=== PATIENT | male | born 1965 | race Caucasian/White ===

== ENCOUNTER 2020-09-25 12:33 | Outpatient (REF) | payer MEDICARE, MEDICAID, SELFPAY ==
[2020-09-25 14:41] LABS: Prostate Specific Antigen 0.07 ng/mL (<0.05-4.0)
== END 2020-09-25 12:34 | disposition home or self-care (01) ==
LOC: HO.10HDL 12:33
PROVIDERS: Visit Provider Urology
DX: Z12.5 Encounter for screening for malignant neoplasm of prostate (principal)
CPT/HCPCS: 36415; 84153

== ENCOUNTER → 2020-10-12 12:55 | Outpatient (BNVA) | payer MEDICARE, MEDICAID, SELFPAY | PROVIDERS: PCP Nurse Practitioner Family; Visit Provider Urology | DX: Z13.89 Encounter for screening for other disorder (principal) | CPT/HCPCS: 99212 ==

== ENCOUNTER → 2021-03-28 12:28 | Outpatient (BNVA) | payer MEDICARE, MEDICAID, SELFPAY | PROVIDERS: Visit Provider Internal Medicine | DX: I44.4 Left anterior fascicular block (principal); I45.10 Unspecified right bundle-branch block | CPT/HCPCS: 93005; 99212 ==

== ENCOUNTER 2021-07-03 11:40 | Outpatient (REF) | payer MEDICARE, MEDICAID, SELFPAY ==
[2021-07-03 14:14] LABS: Prostate Specific Antigen 0.16 ng/mL (<0.05-4.0)
== END 2021-07-03 11:41 | disposition home or self-care (01) ==
LOC: HO.10HDL 11:40
PROVIDERS: Visit Provider Urology
DX: N40.1 Benign prostatic hyperplasia with lower urinary tract symptoms (principal); N13.8 Other obstructive and reflux uropathy
CPT/HCPCS: 36415; 84153

== ENCOUNTER → 2022-08-04 13:56 | Outpatient (BNVA) | payer MEDICARE, MEDICAID, SELFPAY | PROVIDERS: PCP Nurse Practitioner Family; Referring Provider Nurse Practitioner Family; Visit Provider Internal Medicine | DX: I44.4 Left anterior fascicular block (principal); I45.10 Unspecified right bundle-branch block | CPT/HCPCS: 93005; 99212 ==

== ENCOUNTER 2023-01-30 19:55 | Emergency (ER) | payer MEDICARE, MEDICAID, SELFPAY ==
[2023-01-30 19:57] VITALS: BP 130/80; PULSE 77; O2SAT 97
[2023-01-30 20:17] VITALS: BP 130/80; PULSE 77; O2SAT 97; BMI 24.6
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
--- NOTE | 2023-01-30 20:51 | MHC.RECOVSUP ---
? Reason for consult:ETOH o? Current location:ED19? o? Identified substance use concern:? -? Support ? Intervention: o? ATS bed search started/completed/in process o? MAT started or to be started o? Community resources provided ? Plan: o? Referral to [facility] o? Bed search in progress to o? Follow up tomorrow? o? Patient awaiting crisis evaluation o? Patient to follow up with [facility] after discharge ? ? Additional information:
--- NOTE | 2023-01-30 20:53 | MHC.RECOVSUP ---
? Reason for consult:ETOH o? Current location:ED19? o? Identified substance use concern:? -? Support ? Intervention: o? Community resources provided ? Plan: ? Additional information:SARANYA met with this pt to discuss treament, but pt wasn't making any sense. Please check with this pt when he has had time to rest and sober up please and thank you!
[2023-01-30 21:07] VITALS: BP 124/60; PULSE 74; RESP 18; TEMP 37.1; O2SAT 97
[2023-01-30 22:00] VITALS: BP 122/65; PULSE 74; RESP 16; TEMP 36.5; O2SAT 98
--- NOTE | 2023-01-30 23:50 | PC.NURSE ---
sleeping comfortably, no attempts out of bed. cont to reinforce safety and monitor.
[2023-01-31 02:00] VITALS: BP 112/57; PULSE 61; RESP 16; TEMP 36.1; O2SAT 94
--- NOTE | 2023-01-31 02:42 | MHC.EDTECH ---
Patient voided on self while sleeping. Wiped and changed the linen on the bed. Assist patient with a bed bath. Placed a pad on the bed and gave the patient a warm blanket.
[2023-01-31 09:26] VITALS: BP 120/83; PULSE 66; RESP 16; TEMP 37.2; O2SAT 97
--- NOTE | 2023-01-31 09:34 | PC.NURSE ---
pt awake, refusing detox today. offered food and drink, declined. pt's only complaint is being tired and wanting to sleep.
== END 2023-01-31 09:52 | disposition home or self-care (01) ==
PROVIDERS: Emergency Provider Emergency Medicine
DX: F10.129 Alcohol abuse with intoxication, unspecified (principal); Y90.9 Presence of alcohol in blood, level not specified; R51.9 Headache, unspecified; M54.2 Cervicalgia; F17.210 Nicotine dependence, cigarettes, uncomplicated; Z71.6 Tobacco abuse counseling; Z79.899 Other long term (current) drug therapy
CPT/HCPCS: 70450; 72125; 99284; 99285

== ENCOUNTER 2023-02-03 11:29 | Outpatient (REF) | payer MEDICARE, MEDICAID, SELFPAY ==
--- NOTE | ~2023-02-03 | XR_ITS ---
EXAMINATION: XR CLAVICLE, RIGHT CLINICAL INFORMATION: Other specified disorder of bone, shoulder COMPARISON: Chest radiograph 07/09/2017 TECHNIQUE: 2 of the right clavicle. FINDINGS: There is a displaced and foreshortened fracture in the mid clavicle with 1 shaft length inferior displacement of the distal fracture. No pneumothorax is visualized. Degenerative changes in the right shoulder. XR/XR clavicle RT IMPRESSION: Displaced and foreshortened right midclavicular fracture.
== END 2023-02-03 11:30 | disposition home or self-care (01) ==
LOC: HO.HOSX 11:29
PROVIDERS: Visit Provider Physician Assistant
DX: S42.001A Fracture of unspecified part of right clavicle, initial encounter for closed fracture (principal); M89.8X1 Other specified disorders of bone, shoulder
CPT/HCPCS: 73000; 99202

== ENCOUNTER 2023-02-03 13:35 | Outpatient (AMB) | payer MEDICARE, MEDICAID, SELFPAY ==
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
[2023-02-03 14:18] VITALS: BMI 22.9
== END 2023-02-03 14:40 | disposition home or self-care (01) ==
PROVIDERS: PCP Nurse Practitioner Family; Visit Provider Physician Assistant
DX: S42.021A Displaced fracture of shaft of right clavicle, initial encounter for closed fracture (principal); V89.2XXA Person injured in unspecified motor-vehicle accident, traffic, initial encounter
CPT/HCPCS: 99204

== ENCOUNTER 2023-02-11 09:30 | Outpatient (REF) | payer MEDICARE, MEDICAID, SELFPAY ==
[2023-02-11 11:23] LABS: MANUAL DIFF FLAG NO
[2023-02-11 11:27] LABS: Appearance Urine Clear; Color Urine Yellow; Glucose Urine UA Negative (Negative); Leukocyte Esterase Urine Negative (Negative); Nitrite Urine Negative (Negative); PH 5.5 (5.0-9.0); Urine Blood Negative (Negative); Urine Ketones Negative (Negative); Urine Protein Negative (Neg-Trace)
[2023-02-11 11:45] LABS: Basophils Percent Auto 0.7 % (0-2); Eosinophils Absolute Auto 0.1 X10*3/uL (0.0-0.4); Eosinophils Percent Auto 2.8 % (0-4); Hemoglobin 15.7 g/dl (14.0-18.0); Imm Gran Abs Auto 0.01 X10*3/uL (0.00-0.03); Imm Gran Pct Auto 0.2 % (0.0-0.4); Lymphocytes Absolute Auto 1.6 X10*3/uL (1.2-4.9); Lymphocytes Percent Auto 34.6 % (20-40); Mean Corpuscular HGB Conc 33.4 g/dl (31.0-36.0); Mean Corpuscular Hemoglobin 31.7 pg (27.0-33.0); Mean Corpuscular Volume 94.9 fL (80.0-98.0); Mean Platelet Volume 9.8 fL (9.4-12.4); Monocytes Absolute Auto 0.5 X10*3/uL (0.1-1.2); Monocytes Percent Auto 9.8 % (2-11); Neutrophils Absolute Auto 2.4 x10*3/uL (2.0-8.3); Neutrophils Percent Auto 51.9 % (45-73); Platelet Count 277 X10*3/uL (160-400); Red Blood Count 4.95 X10*6/uL (4.60-5.80); Red Cell Distribution Width 13.5 % (11.0-16.0); White Blood Count 4.6 X10*3/uL (4.8-10.8)
[2023-02-11 13:07] LABS: Prostate Specific Antigen Scr 0.17 ng/mL (<0.05-4.0)
[2023-02-11 22:04] LABS: Alanine Aminotransferase 11 U/L (0-40); Albumin Level 4.4 g/dL (3.5-5.0); Alkaline Phosphatase 56 U/L (39-117); Anion Gap 15 (12-20); Aspartate Amino Transferase 14 U/L (5-37); Bilirubin Total 0.6 mg/dL (0.0-1.0); Blood Urea Nitrogen 9 mg/dL (9-16); Calcium 9.8 mg/dL (8.4-10.2); Carbon Dioxide 25 mmol/L (22-29); Chloride 103 mmol/L (96-108); Cholesterol 199 mg/dL; Estimated Glomerular Filt Rate > 60; Glucose Fasting 71 mg/dL (60-99); HDL Cholesterol 48 mg/dL; LDL Cholesterol Calculated 129 mg/dl; Potassium 3.7 mmol/L (3.3-5.1); Sodium 139 mmol/L (135-145); Total Protein 6.7 g/dL (6.5-8.0); Triglycerides 112 mg/dL
[2023-02-11 22:08] LABS: TSH reflex Free T4 2.12 uIU/mL (0.32-4.0)
== END 2023-02-11 09:31 | disposition home or self-care (01) ==
LOC: HO.HMGCLDS 09:30
PROVIDERS: PCP Nurse Practitioner Family; Visit Provider Nurse Practitioner Family
DX: Z00.00 Encounter for general adult medical examination without abnormal findings (principal); Z12.5 Encounter for screening for malignant neoplasm of prostate; C61 Malignant neoplasm of prostate; E78.5 Hyperlipidemia, unspecified; Z13.29 Encounter for screening for other suspected endocrine disorder
CPT/HCPCS: 36415; 80053; 80061; 81003; 84153; 84443; 85025

== ENCOUNTER 2023-05-06 15:00 | Outpatient (AMB) | payer MEDICARE, MEDICAID, SELFPAY ==
--- NOTE | 2023-05-06 15:11 | A.OFFVIS_ITS ---
Intake Intake Visit Reasons: re-establish care/hx prostate CA Intake Note: Patient is Present for Follow Up Re establish care for Prostate Cancer Antibiotic Allergies: None Blood Thinners: Pharmacy: [facility] Allergies No Known Allergies [No Known Allergies*] Allergy (Verified 05/06/23 15:12) HPI HPI Comments History of Present Illness Details Miguel GERONIMO is a very pleasant male. He is a patient of Dr. Bustos. He is seen for the following urologic conditions. - prostate cancer Last visit early 2020 PSA 02/15 0.17 Yearly visit Prostate cancer: Favorable intermediate 09/2017 - initial therapy external beam radiation and short-term hormones Doing well PSA remains can control. Prostate cancer was diagnosed 09/13 Dr Dietrich. Diagnosis was reached by needle biopsy, for elevated PSA, PSA at diagnosis 11.5 , size at TRUS 30 cc. The [place] grade is September 2017 - / cores - 2 cores 70% Gl 3+4, 2 cores Gl 3+3. TNM Classification of Malignant Tumours (TNM) T1c. The D'Minh (NCCN) risk category is Intermediate Risk (PSA 10-20, Gl 7, T2), Group 2 MSK nomagram - 10yr CSS 99%, 10% PFP 70%, OCD 40%, ELAYNE 60%. Initial therapy included 04/13 Primary treatment - External Beam Radiation, short term hormones - [facility] January 2018 Recent labs included 11/12 PSA < 0.05, T 960 03/14 PSA < 0.1, 07/14 < 0.1, 02/12 < 0.1, 10/14 0.1 Recent imaging included 10/11 , a bone scan, with no evidence of metastasis, , a CT (computed tomography) scan, with no evidence of metastasis. Therapeutic plan: Continue with surveillence [facility] Medical History LAFB (left anterior fascicular block) Episodic headache Urinary obstruction Heart block Dyslipidemia Hypercalcemia Adenocarcinoma of prostate Smoker Elevated PSA Carotid bruit Femoral hernia Surgical History History of lower leg fracture History of knee surgery Family History Father Alcoholic Smoker Mother HTN (hypertension) Social History Housing: Apartment Alcohol intake: current Alcohol intake frequency: 3 or more drinks per day Patient Tobacco Use Status: Current everyday Tobacco user Cigarette Packs Per Day: 0.5 Cigarettes Per Day: 10 e-Cigarette/Vaping Use: Never Used Second Hand Smoke Exposure: No service: No Current occupational status: disabled Current occupation: right hand dominant Cognitive needs: No Hearing needs: No Vision needs: No Review of Systems Const Denies chills and Denies fever(s) Card Reports no additional complaints and Denies syncope Resp Denies cough GI Denies abdominal pain and Denies heartburn Reports as per HPI and Denies change in libido Neuro Denies syncope Psych Denies change in libido Endo Denies change in libido Physical Exam Const General: cooperative, healthy appearing, comfortable and no acute distress Orientation/consciousness: patient oriented x3 HEENT Face and sinus: Yes normal facial exam Mouth: moist mucous membranes Neck Neck: Yes normal visual inspection, Yes full ROM and Yes trachea midline Chest Chest palpation & inspection: normal inspection of the chest Resp Effort & Inspection: normal respiratory effort, able to speak in complete sentences and no respiratory distress GI Inspection: Yes normal to inspection Back/Spine/Pelvis Cervical Spine: normal cervical lordosis Thoracic/Lumbar Spine: thoracic and lumbar spine normal to inspection Skin General skin exam: no rashes or lesions noted Neuro General: patient oriented x3, gait normal, tone normal and moves all extremities Extrem General: Yes normal to inspection and Yes capillary refill normal Assessment & Plan Assessment & Plan (1) Adenocarcinoma of prostate: Comment: 10/11 favorable intermediate prostate cancer initial treatment with external beam radiation hormones Code(s): C61 - Malignant neoplasm of prostate Plan One year follow-up PSA Patient Instructions: Imaging studies, laboratory and physical exam results were discussed and reviewed in detail. No major barriers to patient understanding were identified. An opportunity to ask questions regarding the treatment plan was provided. All questions were answered. The patient expressed understanding and agreement with the above treatment plan. The patient is aware they should contact our office by phone for worsening of th eir current condition or the appearance of new urologic symptoms. Compliance is encouraged with any medications and followup testing that is ordered. It is a privilege to participate in the urologic care of your patient. If you have any questions or concerns regarding treatment for the above conditions, or other urologic issues, please do not hesitate to contact me. The office telephone contact is [phone]. This note is constructed using voice recognition software. While every effort has been made to ensure accuracy performing arts technicians errors may have been included. Yours sincerely, Dr Lenny Dietrich MD, [facility] - Urology Providers of Expert, Compassionate Care for the Genitourinary System Coding Level of Care Code Est Pt Level 4 (96219) Diagnoses Adenocarcinoma of prostate C61
== END 2023-05-06 15:25 | disposition home or self-care (01) ==
PROVIDERS: PCP Nurse Practitioner Family; Visit Provider Urology
DX: C61 Malignant neoplasm of prostate (principal)
CPT/HCPCS: 99213

== ENCOUNTER → 2023-05-06 15:00 | Outpatient (BNVA) | payer MEDICARE, MEDICAID, SELFPAY | PROVIDERS: PCP Nurse Practitioner Family; Visit Provider Urology | DX: C61 Malignant neoplasm of prostate (principal) | CPT/HCPCS: 99212 ==

== ENCOUNTER 2023-07-15 13:41 | Outpatient (AMB) | payer MEDICARE, MEDICAID, SELFPAY ==
--- NOTE | 2023-07-15 13:47 | MHC.PC.OV ---
Vital Signs 07/15/23 13:48 Height 5 ft 9 in Weight 134 lb BMI 19.8 BP 118/80 Blood Pressure Location Lt brachial Position Sitting Pulse 86 Pulse Source Pulse Oximeter Pulse Oximetry (%) 99 Oxygen Delivery Method Room Air Intake Visit Reasons: 6 Month follow up Allergies No Known Allergies [No Known Allergies*] Allergy (Verified 07/15/23 13:48) Tobacco use date assessed: 07/15/23 Dental Screening Dental Screen Date: 07/15/23 Did you have a dental visit in the last 12 months?: Yes Did you have a dental problem in the last 6 months where you did not have access to dental care?: Yes Was dental information given to patient?: Patient has dentist HPI 6 Month follow up HPI Details Pt c/o right clavicle pain. He had an XR in January which showed displaced and foreshortened right midclavicular fracture. Pt reports ongoing pain that is interrupting his sleep. Will repet XR. Dyslipidemia: On pravastatin 40mg. Will order labs. Denies chest pain, shortness of breath, and dizziness. Pt saw cardiology previously and it was recommended that pt have yearly EKGs due to LAFB. No changes on EKG today. [facility] Medical History LAFB (left anterior fascicular block) Episodic headache Urinary obstruction Heart block Dyslipidemia Hypercalcemia Adenocarcinoma of prostate Smoker Elevated PSA Carotid bruit Femoral hernia Surgical History History of lower leg fracture History of knee surgery Family History Father Alcoholic Smoker Mother HTN (hypertension) Social History Housing: Apartment Alcohol intake: current Alcohol intake frequency: 3 or more drinks per day Patient Tobacco Use Status: Current everyday Tobacco user Cigarette Packs Per Day: 0.5 Cigarettes Per Day: 10 e-Cigarette/Vaping Use: Never Used Second Hand Smoke Exposure: No service: No Current occupational status: disabled Current occupation: right hand dominant Cognitive needs: No Hearing needs: No Vision needs: Yes Questionnaire PHQ-9 Over the last 2 weeks, how often have you been bothered by any of the following problems? 1. Little interest or pleasure in doing things: not at all 2. Feeling down, depressed, or hopeless: not at all 3. Trouble falling or staying asleep, or sleeping too much: not at all 4. Feeling tired or having little energy: not at all 5. Poor appetite or overeating: not at all 6. Feeling bad about yourself - or that you are a failure or have let yourself or your family down: not at all 7. Trouble concentrating on things, such as reading the newspaper or watching television: not at all 8. Moving or speaking so slowly that other people could have noticed. Or the opposite - being so fidgety or restless that you have been moving around a lot more than usual: not at all 9. Thoughts that you would be better off or of hurting yourself in some way: not at all Total score: 0 Source: Developed by Drs. Sravan Hernandez, Carmen Rivers, Eugene Dee and colleagues, with an educational giana from [employer]. Thrive Questionnaire Date Thrive assessed: 07/15/23 I am a: Patient What is your living situation today?: I have a steady place to live Within the past 12 months, did the food you bought not last and you didn't have the money to get more?: Never true Within the past 12 months, did you worry whether your food would run out before you got money to buy more?: Never true Do you have trouble paying for medicines?: No Do you have trouble getting transportation to medical appointments?: No Do you have trouble paying your heating and electricity bill?: No Do you have trouble taking care of your child, family member or friend?: No Do you have trouble with day-to-day activities such as bathing, preparing meals, shopping, managing finances, etc.?: No Are you currently unemployed and looking for a job?: No Are you interested in more education?: No AUDIT C Alcohol Use Questionnaire (AUDIT-C) 1. How often do you have a drink containing alcohol?: Monthly or less 2. How many drinks containing alcohol do you have on a typical day when you are drinking?: 1 or 2 3. How often do you have six or more drinks on one occasion?: Never Total Score: 1 YAIR-7 AMB Questionnaire YAIR-7 Date YAIR - 7 assessed: 07/15/23 Feeling nervous, anxious, or on edge: 0 = Not at all Not being able to stop or control worryin = Not at all Worrying too much about different things: 0 = Not at all Trouble relaxin = Not at all Being so restless that it is hard to sit still: 0 = Not at all Becoming easily annoyed or irritable: 0 = Not at all Feeling afraid as if something awful might happen: 0 = Not at all Total YAIR-7 score (0-4 normal; 5-9 mild; 10-14 moderate; 15-21 severe): 0 Source: Developed by Drs. Sravan Hernandez, Carmen Rivers, Eugene Dee and colleagues, with an educational giana from [employer]. Review of Systems Const Reports as per HPI Physical exam (Primary Care) Vital Signs: Last Vital Signs Pulse 86 07/15/23 13:48 BP 118/80 07/15/23 13:48 Pulse Ox 99 07/15/23 13:48 Oxygen Delivery Method Room Air 07/15/23 13:48 BMI result Body Mass Index 19.8 Tobacco/Smoking Status: Tobacco use Status Tobacco use date assessed 07/15/23 07/15/23 13:51 Patient Tobacco Use Status Current everyday Tobacco 07/15/23 13:48 e-Cigarette/Vaping Use Never Used 07/15/23 13:48 PHQ-9: PHQ-9 Score PHQ-9: Total score 0 07/15/23 14:15 Thrive Assessment: Date of Thrive Assessment Date Thrive assessed 07/15/23 07/15/23 13:51 Const General: cooperative Orientation/consciousness: patient oriented x3 Resp Effort & Inspection: normal respiratory effort Auscultation: clear to auscultation bilaterally (dim) Cardio Rate: regular rate Rhythm: regular rhythm Heart sounds: S1 normal heart sound present, S2 normal heart sound present and no murmurs Neuro General: patient oriented x3 Extrem Other: distal right clavicle protruding Psych Appearance: grossly normal Mental Status: mental status grossly normal Speech and movement: Normal speech and movement present Affect: normal affect Attitude: cooperative Thought process: Normal thought process present Thought content: Normal thought content present Insight: Good insight present (Psych) Judgement: Good judgement present (Psych) Assessment and Plan Assessment & Plan (1) Right clavicle fracture: Code(s): S42.001A - Fracture of unspecified part of right clavicle, initial encounter for closed fracture Plan: Repeat XR ordered (2) Dyslipidemia: Code(s): E78.5 - Hyperlipidemia, unspecified Plan: Labs ordered (3) LAFB (left anterior fascicular block): Code(s): I44.4 - Left anterior fascicular block Plan The patient agreed to the use of a durable medical equipment technician for this encounter. Scribed for MARIO Davenport-BC by Kamilla Alvarez durable medical equipment technician, on 07/15/2023 at 14:05 EST. Orders: Orders XR clavicle RT Today S42.001A - Fracture of unspecified part of right clavicle, initial encounter for closed fracture Complete Blood Count Auto Diff Today E78.5 - Hyperlipidemia, unspecified Comprehensive [place]. Panel Fast Today E78.5 - Hyperlipidemia, unspecified TSH reflex Free T4 Today E78.5 - Hyperlipidemia, unspecified UA CC w/rflx Micro + Cult Today E78.5 - Hyperlipidemia, unspecified Lipid Panel Today E78.5 - Hyperlipidemia, unspecified AMB EKG-In Office Today I44.4 - Left anterior fascicular block Coding Level of Care Code Est Pt Level 3 (07736) Diagnoses Right clavicle fracture S42.001A Dyslipidemia E78.5 LAFB (left anterior fascicular block) I44.4
[2023-07-15 13:48] VITALS: BP 118/80; PULSE 86; O2SAT 99; BMI 19.8
== END 2023-07-15 14:37 | disposition home or self-care (01) ==
PROVIDERS: PCP Nurse Practitioner Family; Visit Provider Nurse Practitioner Family
DX: S42.001A Fracture of unspecified part of right clavicle, initial encounter for closed fracture (principal); E78.5 Hyperlipidemia, unspecified; I44.4 Left anterior fascicular block
CPT/HCPCS: 99213

== ENCOUNTER 2023-07-28 13:30 | Outpatient (REF) | payer MEDICARE, MEDICAID, SELFPAY | END 2023-07-28 13:31 | disposition home or self-care (01) | LOC: HO.HMGCX 13:30 | PROVIDERS: PCP Nurse Practitioner Family; Visit Provider Nurse Practitioner Family | DX: S42.001A Fracture of unspecified part of right clavicle, initial encounter for closed fracture (principal); X58.XXXA Exposure to other specified factors, initial encounter; Y93.9 Activity, unspecified; Y92.9 Unspecified place or not applicable; Y99.9 Unspecified external cause status | CPT/HCPCS: 73000 ==

== ENCOUNTER 2023-09-04 10:57 | Outpatient (AMB) | payer MEDICARE, MEDICAID, SELFPAY ==
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
== END 2023-09-04 11:16 | disposition home or self-care (01) ==
PROVIDERS: PCP Nurse Practitioner Family; Visit Provider Physician Assistant
DX: S42.001K Fracture of unspecified part of right clavicle, subsequent encounter for fracture with nonunion (principal)
CPT/HCPCS: 99213

== ENCOUNTER → 2023-09-04 10:57 | Outpatient (BNVA) | payer MEDICARE, MEDICAID, SELFPAY | PROVIDERS: PCP Nurse Practitioner Family; Visit Provider Physician Assistant | DX: S42.001K Fracture of unspecified part of right clavicle, subsequent encounter for fracture with nonunion (principal) | CPT/HCPCS: 99212 ==

== ENCOUNTER 2023-12-01 14:00 | Outpatient (RCR) | payer MEDICARE, MEDICAID, SELFPAY ==
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
--- NOTE | 2023-12-31 11:43 | MHC.PT.DC ---
[facility] [place] Office [place] Office [address] Tanna Santos [address] [phone] F: [phone] F: [phone] F: [phone] F: [phone] Physical Therapy Discharge Report Diagnosis: This is a 58 yo male presenting to skilled PT with a script for R clavical fx. Date of Surgery: Date of Evaluation: 11/04/23 Date of Discharge: 12/31/23 Treatments to Date: 7 Cancellations to Date: 0 No Shows to Date: 0 Discharge Status: Patient Elected to Stop Recommend MD Follow-up Discharge Summary: Patient came to 7 abbreviated PT sessions. He had poor compliance with his HEP, posture education and attendence to full PT sessions. He often requested to leave early, demo'd need for constant supervision due to noncompliance with ther-ex program and requested to DC early. Refer back to MD for pain management. Last tx note from 11/30: Pt reports lifting 25 lb weight at home which causes pain and popping. He was once again discouraged to do this however little carryover is noted and minimal compliance with HEP is suspected. Plan is to DC next session. He follows up with ortho again next week. He no longer requires skilled PT. Electronically signed by: Lizzie Matamoros, PT Please sign and return to therapist. Thank you for your referral.
== END 2023-12-31 11:43 | disposition home or self-care (01) ==
LOC: HO.PTCHIC 14:00
PROVIDERS: PCP Nurse Practitioner Family; Visit Provider Physician Assistant
DX: S42.001K Fracture of unspecified part of right clavicle, subsequent encounter for fracture with nonunion (principal)
CPT/HCPCS: 97110; 97162

== ENCOUNTER 2023-12-10 08:36 | Outpatient (REF) | payer MEDICARE, MEDICAID, SELFPAY ==
--- NOTE | ~2023-12-10 | XR_ITS ---
EXAMINATION: XR CLAVICLE, RIGHT CLINICAL INFORMATION: Reason for Exam M89.8X1 - Other specified disorders of bone, shoulder COMPARISON: X-rays of the right clavicle July 2023 and January 2023 TECHNIQUE: Two views of the right clavicle. FINDINGS: Oblique displaced middle third clavicle fracture unchanged. There is overlapping of the ends of the bone fragments by approximately 3 cm. No additional abnormalities. XR/XR clavicle RT IMPRESSION: Displaced middle third clavicle fracture unchanged. Findings consistent with nonunion with the fracture visible dating back to January 2023.
== END 2023-12-10 08:37 | disposition home or self-care (01) ==
LOC: HO.HOSX 08:36
PROVIDERS: Visit Provider Physician Assistant
DX: S42.001K Fracture of unspecified part of right clavicle, subsequent encounter for fracture with nonunion (principal); M89.8X1 Other specified disorders of bone, shoulder
CPT/HCPCS: 73000; 99212

== ENCOUNTER 2023-12-10 10:39 | Outpatient (AMB) | payer MEDICARE, MEDICAID, SELFPAY ==
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
[2023-12-10 10:55] VITALS: BMI 19.8
== END 2023-12-10 11:00 | disposition home or self-care (01) ==
PROVIDERS: PCP Nurse Practitioner Family; Visit Provider Physician Assistant
DX: S42.001K Fracture of unspecified part of right clavicle, subsequent encounter for fracture with nonunion (principal)
CPT/HCPCS: 99213

== ENCOUNTER 2024-01-27 13:55 | Outpatient (AMB) | payer MEDICARE, MEDICAID, SELFPAY ==
--- NOTE | 2024-01-27 14:00 | MHC.PC.OV ---
Vital Signs 01/27/24 14:03 Weight 128 lb BP 128/80 Blood Pressure Location Rt brachial Position Sitting Pulse 100 Pulse Source Pulse Oximeter Pulse Oximetry (%) 98 Oxygen Delivery Method Room Air Intake Visit Reasons: Annual PE Intake Note: Patient here for physical exam. Allergies No Known Allergies [No Known Allergies*] Allergy (Verified 01/27/24 14:33) Medication List - Last Reconciled 01/27/24 by FIGUEROA Doran pravastatin 40 mg PO DAILY Tobacco use date assessed: 01/27/24 Dental Screening Dental Screen Date: 01/27/24 Did you have a dental visit in the last 12 months?: No Did you have a dental problem in the last 6 months where you did not have access to dental care?: No Was dental information given to patient?: No HPI Annual PE HPI Details Pt is here for a PE. Will order labs. Colon screen is up to date. Pt follows up with urology. Pt has been a PPD smoker since age 19. Will refer for low-dose CT. Pt has staff members who assist with his care, though he lives independently. [facility] Medical History (Updated 01/27/24 @ 14:17 by FIGUEROA Doran) LAFB (left anterior fascicular block) Episodic headache Urinary obstruction Heart block Dyslipidemia Hypercalcemia Adenocarcinoma of prostate Smoker Elevated PSA Carotid bruit Femoral hernia Surgical History History of lower leg fracture History of knee surgery Family History Father Alcoholic Smoker Mother HTN (hypertension) Social History Housing: Apartment Alcohol intake: current Alcohol intake frequency: 3 or more drinks per day Patient Tobacco Use Status: Current everyday Tobacco user Cigarette Packs Per Day: 0.5 Cigarettes Per Day: 10 e-Cigarette/Vaping Use: Never Used Second Hand Smoke Exposure: No service: No Current occupational status: disabled Current occupation: right hand dominant Cognitive needs: No Hearing needs: No Vision needs: Yes Questionnaire PHQ-9 Over the last 2 weeks, how often have you been bothered by any of the following problems? 53051 - PHQ-9 Billing: Patient declined-do not bill Source: Developed by Drs. Sravan Hernandez, Carmen Rivers, Eugene Dee and colleagues, with an educational giana from [employer]. Thrive Questionnaire Date Thrive assessed: 07/15/23 Currently or been in a relationship where the following occur: No concerns reported THRIVE Score: 0 AUDIT C Alcohol Use Questionnaire (AUDIT-C) 1. How often do you have a drink containing alcohol?: Monthly or less 2. How many drinks containing alcohol do you have on a typical day when you are drinking?: 1 or 2 3. How often do you have six or more drinks on one occasion?: Never Total Score: 1 Score Reviewed/Action Taken: No YAIR-7 AMB Questionnaire YAIR-7 Date YAIR - 7 assessed: 07/15/23 Source: Developed by Drs. Sravan Hernandez, Eugene Chaudhary and colleagues, with an educational giana from [employer]. YAIR-7 Assessment Billing YAIR-7 Assessment Tool: pt declined-do not bill Review of Systems Const Denies chills and Denies fever(s) Eyes Denies blurry vision ENT Denies vertigo, Denies dizziness and Denies sore throat Card Denies chest pain at rest, Denies chest pain with activity, Denies diaphoresis, Denies dyspnea and Denies dyspnea on exertion Resp Denies cough, Denies dyspnea, Denies dyspnea on exertion and Denies wheezing GI Denies abdominal pain, Denies melena, Denies hematochezia, Denies constipation, Denies diarrhea and Denies loose stools Denies hematuria Musc Denies numbness and Denies tingling Skin/Breast Denies lesions Neuro Denies vertigo, Denies dizziness, Denies numbness and Denies tingling Psych Denies anxiety, Denies depression, Denies homicidal ideation, Denies suicidal ideation and Denies other (substance abuse) Aller/Immun Denies wheezing Physical exam (Primary Care) Vital Signs: Last Vital Signs Pulse 100 01/27/24 14:03 BP 128/80 01/27/24 14:03 Pulse Ox 98 01/27/24 14:03 Oxygen Delivery Method Room Air 01/27/24 14:03 Tobacco/Smoking Status: Tobacco use Status Tobacco use date assessed 01/27/24 01/27/24 14:05 Patient Tobacco Use Status Current everyday Tobacco 01/27/24 14:01 e-Cigarette/Vaping Use Never Used 01/27/24 14:01 Thrive Assessment: Date of Thrive Assessment Date Thrive assessed 07/15/23 01/27/24 14:01 Currently or been in a relationship where the following occur: No concerns reported Const General: cooperative Nutritional Appearance: well nourished Orientation/consciousness: patient oriented x3 HENMT Head: Yes normal to inspection, Yes normocephalic and Yes atraumatic Ears: TM's normal bilaterally Eyes General: appearance normal, both eyes and all related structures Alignment and Position: alignment normal and position normal Neck Neck: Yes normal visual inspection and Yes no lymphadenopathy Thyroid: Thyroid normal Resp Effort & Inspection: normal respiratory effort Auscultation: clear to auscultation bilaterally and diminished lung sounds Cardio Rate: regular rate Rhythm: regular rhythm Heart sounds: S1 normal heart sound present, S2 normal heart sound present and no murmurs GI Palpation (GI): Soft to palpation and nontender Auscultation: normal bowel sounds Male General Exam: Yes normal external exam Penis: normal penis Scrotum: scrotum normal, testes descended bilaterally and no inguinal hernias Testes: no testicular mass Skin Rashes: no rashes Neuro General: patient oriented x3, moves all extremities, no focal motor deficits and deep tendon reflexes 2+ bilaterally Romberg Test: Negative Psych Appearance: grossly normal Mental Status: mental status grossly normal Speech and movement: Normal speech and movement present Affect: normal affect Attitude: cooperative Thought process: Normal thought process present Thought content: Normal thought content present Insight: Good insight present (Psych) Judgement: Good judgement present (Psych) Immunizations pneumoc 20-danny conj-dip cr(PF) 0.5 mL IM syringe Performing Provider: FIGUEROA Doran Performing [facility]: [facility] Administered by: Geoff Franco CMA on 01/27/24 14:42 Dose Route Admin Location Dispensed Lot Number Expiration Date NDC Teletypesetter Monitor 0.5 mL IM Right Deltoid 0.5 mL [id number] 03/15/25 6616-8770-99 [employer]ETH/PFIZER VIS Given Date VIS Provided VIS Publication Date 01/27/24 Single Vaccine 21 Eligibility Eligibility Date Funding Source Not [facility] Eligible 01/27/24 Private Assessment and Plan Assessment & Plan (1) Smoker: Code(s): F17.200 - Nicotine dependence, unspecified, uncomplicated Plan: Referred for low-dose CT (2) Physical exam: Code(s): Z00.00 - Encounter for general adult medical examination without abnormal findings Plan: Labs ordered Plan The patient agreed to the use of a medical claims representative for this encounter. Scribed for FIGUEROA Davenport by Kamilla Alvarez medical claims representative, on 01/27/2024 at 14:15 EST. Orders: Orders Complete Blood Count Auto Diff Today Z00.00 - Encounter for general adult medical examination without abnormal findings UA CC w/rflx Micro + Cult Today Z00.00 - Encounter for general adult medical examination without abnormal findings Lipid Panel Today Z00.00 - Encounter for general adult medical examination without abnormal findings Comprehensive Logan. Panel Fast Today Z00.00 - Encounter for general adult medical examination without abnormal findings TSH reflex Free T4 Today Z00.00 - Encounter for general adult medical examination without abnormal findings Pneumococcal 20 Immunization Today Z23 - Encounter for immunization Referrals Thoracic/General Surgery Referral F17.200 - Nicotine dependence, unspecified, uncomplicated Coding Level of Care Code Est Pt Prev Care 40-64y(08685) Diagnoses Smoker F17.200 Physical exam Z00.00
[2024-01-27 14:03] VITALS: BP 128/80; PULSE 100; O2SAT 98
== END 2024-01-27 14:44 | disposition home or self-care (01) ==
PROVIDERS: PCP Nurse Practitioner Family; Visit Provider Nurse Practitioner Family
DX: Z00.00 Encounter for general adult medical examination without abnormal findings (principal); F17.210 Nicotine dependence, cigarettes, uncomplicated; Z23 Encounter for immunization
CPT/HCPCS: 90471; 90677; 99396

== ENCOUNTER 2024-03-17 16:23 | Outpatient (AMB) | payer MEDICARE, SELFPAY ==
--- NOTE | 2024-03-17 14:56 | MHC.OFFVIS ---
Intake Visit Reasons: Current Smoker Allergies No Known Allergies [No Known Allergies*] Allergy (Verified 01/27/24 14:33) HPI HPI Current Smoker: Details: Initial telehealth visit via phone for this 58yo smoker with a 50PYH. Patient has been smoking since age 20 for 48 years at 1-2PPD. . Denies marijuana use. Denies second hand smoke exposure. Denies exposure to chemicals or substances like asbestos. . Denies known family history of lung cancer. Reports personal history of prostate cancer. Did radiation - in remission. Denies chest CT in last year. . Denies recent travel outside the [place]. Denies recent respiratory illness or recent hospitalization for respiratory issues. Denies testing positive for COVID. Admits receiving COVID Vaccine. x2. . Denies fever, chills, new/worsening cough, hemoptysis, hoarseness or dysphagia. Denies significant chest pain, significant dyspnea or unintentional weight loss. Patient Lung Cancer Screening Questionnaire reviewed with patient by provider. . Shared Decision Making Completed. Patient meets criteria. Discussed in detail with patient, the risk vs benefit of LDCT screening. Patient consents to proceed with scan. Discussed an encouraged continued smoking cessation. [facility] Medical History (Updated 03/17/24 @ 15:02 by Lynda Monsalve PA-C) Adenocarcinoma of prostate (~2018) Elevated PSA Heart block LAFB (left anterior fascicular block) Carotid bruit Dyslipidemia Nicotine dependence, cigarettes, uncomplicated Hypercalcemia Episodic headache Urinary obstruction Femoral hernia Surgical History (Updated 02/18/24 @ 09:21 by Lynda Monsalve PA-C) History of prostate biopsy History of colonoscopy History of esophagogastroduodenoscopy (EGD) History of right knee surgery History of lower leg fracture Family History Father Alcoholic Smoker Mother HTN (hypertension) Social History (Updated 03/17/24 @ 15:02 by Lynda Monsalve PA-C) Housing: Apartment Alcohol intake: current Alcohol intake frequency: 3 or more drinks per day Patient Tobacco Use Status: Former Tobacco user Years Smoked: onset 20yo, 1-2ppd x38yrs, 50+pyh, quit 02/2024 e-Cigarette/Vaping Use: Never Used Second Hand Smoke Exposure: No service: No Current occupational status: disabled Current occupation: right hand dominant Cognitive needs: No Hearing needs: No Vision needs: Yes Telehealth Telehealth Telehealth Platform: Telephone Location of provider rendering services: practice address Location of patient: address on file Patient Identification confirmed using: Name, : Yes Telehealth method: voice only Patient verbally consented to treatment: Yes Patient verbally consented to billing insurance company: Yes Patient informed of any privacy concerns related to visit: Yes Minutes spent on Phone/Video with Pt.: 15 Assessment & Plan Assessment & Plan (1) Nicotine dependence, cigarettes, uncomplicated: Comment: (onset 20yo, 1-2ppd x38yrs, 50+pyh, quit 02/2024) Code(s): F17.210 - Nicotine dependence, cigarettes, uncomplicated Category: Medical Plan: - SDM visit completed today via phone. - Patient meets criteria for LDCT for lung cancer screening purposes and is asymptomatic. - Smoking cessation counseling offered. Patients can always call [phone]. - Will arrange for a LDCT scan of the chest for screening purposes at [facility]. - Risks, benefits, and alternatives were discussed in detail and the patient agrees to proceed. - Risks discussed include but are not limited to: radiation exposure, anxiety during testing and while awaiting results, false negatives, false positives and possibility of additional intervention such as further imaging or surgical procedures for benign disease. - Benefits are obviously detection of lung cancer at an early stage which can lead to improved outcomes. - Discussed the importance of screening program compliance with adherence to yearly LDCT scan as scheduled - or sooner interval scans for personalized screening regimen. - Discussed follow up plan. Our office will send a letter discussing results and if needed set up phone call and office visit based on CT findings. - Patient educated on results categorization and the management decisions for suspicious findings potentially found on the screening LDCT scan. Any patient with a Lung RADS score of 3 or 4 will be reviewed by a multidisciplinary team at [facility] to form a plan of action in regards to scan findings. - If further work up is warranted for a suspicious lung finding this will be followed by the Lung Cancer Screening program in conjunction with the Thoracic Surgery Department at [facility]. - A copy of the office note and LDCT will be sent to the patient's PCP - as well as documentation on any associated further plans of care. - Incidental findings on LDCT are the PCP's responsibility. These findings are indicated with an S finding on the LDCT Assessment. A note discussing the findings will be sent to the PCP who is then responsible for further management. - All questions answered.? Coding Level of Care Code Lung Cancer Screening G0296 Diagnoses Nicotine dependence, cigarettes, uncomplicated F17.210
== END 2024-03-17 16:23 | disposition home or self-care (01) ==
LOC: HO.HPS 16:23
PROVIDERS: PCP Nurse Practitioner Family; Referring Provider Nurse Practitioner Family; Visit Provider Physician Assistant Medical
DX: F17.210 Nicotine dependence, cigarettes, uncomplicated (principal)
CPT/HCPCS: G0296

== ENCOUNTER → 2024-03-17 16:23 | Outpatient (BNVA) | payer MEDICARE, SELFPAY | PROVIDERS: PCP Nurse Practitioner Family; Visit Provider Physician Assistant Medical | DX: F17.210 Nicotine dependence, cigarettes, uncomplicated (principal) | CPT/HCPCS: G0296 ==

== ENCOUNTER 2024-03-18 10:36 | Outpatient (REF) | payer MEDICARE, SELFPAY ==
--- NOTE | ~2024-03-18 | CT_ITS ---
EXAMINATION: CT LOW-DOSE SCREENING CHEST WITHOUT CONTRAST CLINICAL INFORMATION: Nicotine dependence, cigarettes, uncomplicated. The patient is a current smoker with a 39 pack-year history of smoking. COMPARISON: X-ray chest July 09, 2017. TECHNIQUE: Multidetector volumetric CT imaging of the chest is performed on a Siemens SOMATOM Definition scanner without contrast using low dose technique. Additional 2D coronal and sagittal reformatted images and axial 3D maximum intensity projection (MIP) images are generated on the CT workstation. This CT examination was performed using dose optimization techniques as appropriate, variously including the following: *Automated exposure control *Adjustment of mA and/or kV according to patient size (this includes techniques or standardized protocols for targeted exams where dose is matched to indication/reason for exam; i.e. extremities or head) *Use of iterative reconstruction technique TOTAL EXAM DLP: 44 mGy-cm. CTDIvol: 1.21 mGy. FINDINGS: PULMONARY NODULES: Two small pulmonary nodules are seen, the largest measuring 4 mm in the right upper lobe, on top of the minor fissure (5:260), likely a lymph node. One additional small 2 mm right middle lobe nodule is present (8:82). There is no suspicious pulmonary nodule LUNGS: Lungs bilaterally symmetrically expanded. There is mild emphysema and bronchial thickening without bronchiectasis. No effusion or pneumothorax. Central airways patent. MEDIASTINUM: No mediastinal, hilar or axillary adenopathy or free fluid collection. CORONARY ARTERY CALCIFICATION: None visualized on this study. THYROID GLAND: Unremarkable to the extent seen. CARDIOVASCULAR STRUCTURES: Ascending aorta mildly prominent at 3.8 cm. Heart size normal. No pericardial effusion. CHEST WALL/AXILLA: Unremarkable. UPPER ABDOMEN: Included portions of the solid organs in the upper abdomen unremarkable on noncontrast imaging. OSSEOUS STRUCTURES: No suspicious focal findings. CT/CT lung screening IMPRESSION: No finding is seen which is suspicious for malignancy. ASSESSMENT: 1. Lung-RADS Category 2: Benign appearance or behavior of nodules. N/A 2. Lung-RADS Category S: Negative. There are no clinically significant or potentially clinically significant findings not related to the lungs requiring urgent additional evaluation. RECOMMENDATION: Continued routine annual low-dose CT lung screening in 1 year is recommended. An order for CT CHEST LOW DOSE CANCER SCREENING ([id number]) can be placed. Electronically signed by: Jovi Wilks MD 04/15/2024 12:54 AM EDT RP
== END 2024-03-18 10:37 | disposition home or self-care (01) ==
LOC: HO.CT 10:36
PROVIDERS: PCP Nurse Practitioner Family; Visit Provider Physician Assistant Medical
DX: Z12.2 Encounter for screening for malignant neoplasm of respiratory organs (principal); F17.210 Nicotine dependence, cigarettes, uncomplicated
CPT/HCPCS: 71271

== ENCOUNTER 2024-06-14 13:32 | Outpatient (AMB) | payer MEDICARE, SELFPAY ==
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
== END 2024-06-14 14:09 | disposition home or self-care (01) ==
PROVIDERS: PCP Nurse Practitioner Family; Visit Provider Physician Assistant
DX: S42.001K Fracture of unspecified part of right clavicle, subsequent encounter for fracture with nonunion (principal)
CPT/HCPCS: 99213

== ENCOUNTER → 2024-06-14 13:32 | Outpatient (BNVA) | payer MEDICARE, SELFPAY | PROVIDERS: PCP Nurse Practitioner Family; Visit Provider Physician Assistant | DX: S42.001K Fracture of unspecified part of right clavicle, subsequent encounter for fracture with nonunion (principal) | CPT/HCPCS: 99212 ==

== ENCOUNTER 2024-07-11 12:16 | Outpatient (AMB) | payer MEDICARE, SELFPAY ==
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
== END 2024-07-11 15:40 | disposition home or self-care (01) ==
PROVIDERS: PCP Nurse Practitioner Family; Visit Provider Orthopaedic Surgery
DX: S42.001K Fracture of unspecified part of right clavicle, subsequent encounter for fracture with nonunion (principal)
CPT/HCPCS: 99214

== ENCOUNTER 2024-07-11 12:16 | Outpatient (REF) | payer MEDICARE, SELFPAY | END 2024-07-11 12:17 | disposition home or self-care (01) | LOC: HO.HOSX 12:16 | PROVIDERS: PCP Nurse Practitioner Family; Visit Provider Orthopaedic Surgery | DX: S42.001K Fracture of unspecified part of right clavicle, subsequent encounter for fracture with nonunion (principal) | CPT/HCPCS: 73000; 99212 ==

== ENCOUNTER 2024-10-12 10:24 | Outpatient (REF) | payer MEDICARE, SELFPAY ==
--- OUTSIDE RECORDS SUMMARY | 2024-10-12 12:11 | XMS_ITS | Clinical Summary ---
Author Organization [facility] ity Address [address] [place] [address] Care Team Providers Care Commercial Real Estate Associate Name Role Phone Unavailable Primary Care Provider Unavailabl e Social History Tobacco Use Types Packs/Day Years Used Date Smoking Tobacco: Never Assessed Sex and Gender Information Value Date Recorded Sex Assigned at Not on file Legal Sex Male 3:00 PM EST Gender Identity Not on file Sexual Orientation Not on file Plan of Treatment Health Maintenance Due Date Last Done Comments DTaP,Tdap,and Td Vaccines (1 - Tdap) 1986 Hepatitis B Vaccines (1 of 3 - 19+ 3-dose series) 1986 Pneumococcal Vaccine: 50+ Ye ars (1 of 1 - PCV) 2017 Zoster Vaccines (1 of 2) 2017 Cholesterol Screening (Lipid Panel) 08/25/2023 Colorectal Cancer Screening: Colonoscopy 08/25/2023 Depression Screening 08/25/2023 HIV Screening 08/25/2023 Hepatitis C Screening 08/25/2023 Medicare Annual Wellness Visit 08/25/2023 Social Influencers of Health Screening 08/25/2023 COVID-19 Vaccine ( - 2023-2 5 season) 2024 Influenza Vaccine (#1) 2024 HIB Vaccines Aged Out No longer eligi ble based on patient's age to complete this topic HPV Vaccines Aged Out No longer eligi ble based on patient's age to complete this topic Hepatitis A Vaccines Aged Out No long er eligible based on patient's age to complete this topic IPV Vaccines Aged Out No longer eligi ble based on patient's age to complete this topic MMR Vaccines Aged Out No longer eligi ble based on patient's age to complete this topic Meningococcal ACWY Vaccine Aged Out N o longer eligible based on patient's age to complete this topic Meningococcal B Vacine Aged Out No lo nger eligible based on patient's age to complete this topic Pneumococcal Vaccine: Pediat rics (0 to 5 Years) and At-Risk Patients (6 to 64 Years) Aged Out No longer eligible b ased on patient's age to complete this topic RSV Immunization Patients Un royer 20 months Aged Out No longer eligible b ased on patient's age to complete this topic Varicella Vaccines Aged Out No longer eligible based on patient's age to complete this topic
--- OUTSIDE RECORDS SUMMARY | 2024-10-12 12:11 | XMS_ITS ---
Author Organization [facility] Care Team Providers Care Board Operator Name Role Phone Yecenia Drew Unavailable Unavailable Uday Ravi Unavailable Unavailable Sierra Méndez Unavailable Unavailable Yosef Shane Unavailable Unavailable Jackie Denis Unavailable Unavailable Allergies and adverse reactions No Known Allergies Care Team Name Role Address Phone Organization Dates Uday Ravi PCP [address], [address], [place] (Office): [facility] 10/03/2022 - 10/10/2022 Yecenia Drew Attending Physician [address] [place] [address], [address], [place] (Office): [facility] 10/03/2022 - 10/10/2022 Sierra Méndez Attending Physician [address] [place] [address], [address], [place] (Office): [facility] 10/03/2022 - 10/10/2022 Yosef Shane Attending Physician [address] [place], [address], [place] (Office): [facility] 10/03/2022 - 10/10/2022 Jackie Denis Attending Physician [address] [place], [address], [facility] (Office): [facility] 10/03/2022 - 10/10/2022 Mental Status Section Date Assessment Total Score Description 10/10/2022 BIMS 14 cognitively int act CAM 0 No delirium ind icated PHQ-9 00 10/07/2022 BIMS 15 cognitively int act CAM 0 No delirium ind icated PHQ-9 02 minimal depress ion Problems Problem # Description Date of onset Resolved Date Code CodeSystem Concern Status 1 ALCOHOL ABUSE WITH INTOXICATION, UNSPECIFIED 10/03/[address] active 2 BENIGN PROSTATIC HYPERPLASIA WITH LOWER URINARY TRACT SYMPTOMS 10/03/[address] active 3 DIFFICULTY IN WALKING, NOT ELSEWHERE CLASSIFIED 10/03/[address] active 4 FALL ON SAME LEVEL, UNSPECIFIED, SUBSEQUENT ENCOUNTER 10/03/[address] active 5 FRACTURE OF UNSPECIFIED PART OF RIGHT CLAVICLE, SUBSEQUENT ENCOUNTER FOR FRACTURE WITH ROUTINE HEALING 10/03/[address] active 6 MUSCLE WEAKNESS (GENERALIZED) 10/03/[address] active 7 UNSPECIFIED FRACTURE OF FACIAL BONES, SUBSEQUENT ENCOUNTER FOR FRACTURE WITH ROUTINE HEALING 10/03/[address] active 8 UNSTEADINESS ON FEET 10/03/[address] active Reason for Referral No Reasons for Referral Entered Social History Social History Observation Description Start Date End Date Code Code System Current Smoking Status Tobacco smoking consumption unknown 522673332 SNOMED CT Sex Assigned At Male 1965 80939-2 [facility] Vital Signs Code Code System Vitals Name Values and Units Timing Information 9279-1 [facility] Respiratory Rate Value=18.0 Units=/m in 10/10/2022 99633-1 INC Pain Level Value=0.0 10/10/2022 8462-4 [facility] Blood Pressure-Diastolic Value=76 Un its=mmHg 10/10/2022 8480-6 LOINC Blood Pressure-Systolic Tvuaj=349 Un its=mmHg 10/10/2022 8310-5 [facility] Body Temperature Value=98.2 Units=?? F 10/10/2022 8867-4 [facility] Heart rate Value=81.0 Units=/min 99803-3 [facility] O2 % BldC Oximetry Value=96.0 Units= % 10/10/2022 41269-6 LOINC Weight Uixdt=410.0 Units=Lbs 8302-2 LOINC Height Value=70.0 Units=Inches 10/07/2022
[2024-10-12 14:21] LABS: Prostate Specific Antigen 0.28 ng/mL (<0.05-4.0)
== END 2024-10-12 10:25 | disposition home or self-care (01) ==
LOC: HO.HMGCLDS 10:24
PROVIDERS: PCP Nurse Practitioner Family; Visit Provider Urology
DX: Z12.5 Encounter for screening for malignant neoplasm of prostate (principal)
CPT/HCPCS: 36415; 84153

== ENCOUNTER 2024-10-18 10:05 | Outpatient (AMB) | payer MEDICARE, SELFPAY ==
--- NOTE | 2024-10-18 10:10 | A.OFFVIS_ITS ---
Intake Visit Reasons: 1Y/PSA(PSA?) Intake Note: Patient is Present for 1Y Follow Up PSA Antibiotic Allergies: None Blood Thinners:NONE MEDICATION:NONE Tour Bus Driver Required: No Allergies No Known Allergies [No Known Allergies*] Allergy (Verified 10/18/24 10:12) HPI Comments Details: Miguel GERONIMO is a very pleasant male. He is a patient of Dr. Bustos. He is seen for the following urologic conditions. - prostate cancer Last visit early 2020 PSA 02/15 0.17, 10/18 0.3 Yearly visit Prostate cancer: Favorable intermediate 09/2017 - initial therapy external beam radiation and short-term hormones Doing well PSA remains can control. Prostate cancer was diagnosed 09/13 Dr Dietrich. Diagnosis was reached by needle biopsy, for elevated PSA, PSA at diagnosis 11.5 , size at TRUS 30 cc. The Jessica grade is September 2017 - 11/05 cores - 2 cores 70% Gl 3+4, 2 cores Gl 3+3. TNM Classification of Malignant Tumours (TNM) T1c. The D'Minh (NCCN) risk category is Intermediate Risk (PSA 10-20, Gl 7, T2), Group 2 MSK nomagram - 10yr CSS 99%, 10% PFP 70%, OCD 40%, ELAYNE 60%. Initial therapy included 04/13 Primary treatment - External Beam Radiation, short term hormones - [facility] January 2018 Recent labs included 11/12 PSA < 0.05, T 960 03/14 PSA < 0.1, 07/14 < 0.1, 02/12 < 0.1, 10/14 0.1 Recent imaging included 10/11 , a bone scan, with no evidence of metastasis, , a CT (computed tomography) scan, with no evidence of metastasis. Therapeutic plan: Continue with surveillence [facility] Medical History (Updated 03/17/24 @ 15:02 by Lynda Monsalve PA-C) Adenocarcinoma of prostate (~2017) Elevated PSA Heart block LAFB (left anterior fascicular block) Carotid bruit Dyslipidemia Nicotine dependence, cigarettes, uncomplicated Hypercalcemia Episodic headache Urinary obstruction Femoral hernia Surgical History (Updated 02/18/24 @ 09:21 by Lynda Monsalve PA-C) History of prostate biopsy History of colonoscopy History of esophagogastroduodenoscopy (EGD) History of right knee surgery History of lower leg fracture Family History Father Alcoholic Smoker Mother HTN (hypertension) Social History Housing: Apartment Alcohol intake: current Alcohol intake frequency: 3 or more drinks per day Patient Tobacco Use Status: Former Tobacco user Years Smoked: onset 20yo, 1-2ppd x38yrs, 50+pyh, quit 02/2024 e-Cigarette/Vaping Use: Never Used Second Hand Smoke Exposure: No service: No Current occupational status: disabled Current occupation: right hand dominant Cognitive needs: No Hearing needs: No Vision needs: Yes Assessment & Plan Assessment & Plan (1) Adenocarcinoma of prostate: Onset Date: ~2017 Comment: 10/11 favorable intermediate prostate cancer initial treatment with external beam radiation hormones Code(s): C61 - Malignant neoplasm of prostate Category: Medical Plan Plan Continue annual PSA monitoring. Normal urinary function with no issues reported. Encourage smoking cessation with a transition to vaping discussed. Persistent shoulder pain noted, with future evaluation if needed.: Discussion Notes I discussed with the patient that his prostate cancer remains in remission, as shown by a low PSA of 0.3, reinforcing that current treatment is effective. We talked about managing his condition with routine annual check-ups and PSA testing. In terms of urinary health, the patient indicated no issues, confirming satisfactory control without urgency or frequency problems. I addressed his nicotine addiction, where switching to vaping was suggested as a potential harm reduction strategy. The patient was advised about the ongoing shoulder pain and was encouraged to seek further care if it worsens. Patient Instructions - Continue with annual PSA monitoring and schedule follow-up in 12 months. - Maintain regular urination pattern without modifications. - Attempt to quit smoking; consider switching to vaping for reduced harm. - Consult with healthcare provider if shoulder pain increases or if new symptoms arise. Orders: Orders Prostate Specific Antigen 364 Days C61 - Malignant neoplasm of prostate Prostate Specific Antigen 10/12/24 Z12.5 - Encounter for screening for malignant neoplasm of prostate Patient Instructions: This note is constructed using voice recognition software. While every effort has been made to ensure accuracy senior web applications developer errors may have been included. Imaging studies, laboratory and physical exam results were discussed and reviewed in detail. No major barriers to patient understanding were identified. An opportunity to ask questions regarding the treatment plan was provided. All questions were answered. The patient expressed understanding and agreement with the above treatment plan. The patient is aware they should contact our office by phone for worsening of their current condition or the appearance of new urologic symptoms. Compliance is encouraged with any medications and followup testing that is ordered. It is a privilege to participate in the urologic care of your patient. If you have any questions or concerns regarding treatment for the above conditions, or other urologic issues, please do not hesitate to contact me. The office telephone contact is [phone]. Sincerely, Dr Lenny Dietrich MD, [facility] - Urology Compassionate Specialist Care for the Genitourinary System Coding Level of Care Code Est Pt Level 4 (03921) Complex EM visit Add On G2211 Diagnoses Adenocarcinoma of prostate C61
--- OUTSIDE RECORDS SUMMARY | 2024-10-18 11:56 | XMS_ITS ---
Author Organization [facility] Care Team Providers Care Polysomnographer Name Role Phone Yecenia Drew Unavailable Unavailable Uday Ravi Unavailable Unavailable Sierra Méndez Unavailable Unavailable Yosef Shane Unavailable Unavailable Jackie Denis Unavailable Unavailable Allergies and adverse reactions No Known Allergies Care Team Name Role Address Phone Organization Dates Uday Ravi PCP [address], [address], [place] (Office): [facility] 10/03/2022 - 10/10/2022 Yecenia Drew Attending Physician [address] [place] [address], [address], [place] (Office): [facility] 10/03/2022 - 10/10/2022 Sierra Méndez Attending Physician [address] [place] [address], [address], [place] (Office): [facility] 10/03/2022 - 10/10/2022 Yosef Shane Attending Physician [address] [place], [address], [place] (Office): [facility] 10/03/2022 - 10/10/2022 Jackie Denis Attending Physician [address] [place], [address], [facility] (Office): [facility] 10/03/2022 - 10/10/2022 Mental Status Section Date Assessment Total Score Description 10/10/2022 BIMS 14 cognitively int act CAM 0 No delirium ind icated PHQ-9 00 10/07/2022 BIMS 15 cognitively int act CAM 0 No delirium ind icated PHQ-9 02 minimal depress ion Problems Problem # Description Date of onset Resolved Date Code CodeSystem Concern Status 1 ALCOHOL ABUSE WITH INTOXICATION, UNSPECIFIED 10/03/[address] active 2 BENIGN PROSTATIC HYPERPLASIA WITH LOWER URINARY TRACT SYMPTOMS 10/03/[address] active 3 DIFFICULTY IN WALKING, NOT ELSEWHERE CLASSIFIED 10/03/[address] active 4 FALL ON SAME LEVEL, UNSPECIFIED, SUBSEQUENT ENCOUNTER 10/03/[address] active 5 FRACTURE OF UNSPECIFIED PART OF RIGHT CLAVICLE, SUBSEQUENT ENCOUNTER FOR FRACTURE WITH ROUTINE HEALING 10/03/[address] active 6 MUSCLE WEAKNESS (GENERALIZED) 10/03/[address] active 7 UNSPECIFIED FRACTURE OF FACIAL BONES, SUBSEQUENT ENCOUNTER FOR FRACTURE WITH ROUTINE HEALING 10/03/[address] active 8 UNSTEADINESS ON FEET 10/03/[address] active Reason for Referral No Reasons for Referral Entered Social History Social History Observation Description Start Date End Date Code Code System Current Smoking Status Tobacco smoking consumption unknown 071734486 SNOMED CT Sex Assigned At Male 1965 [address]89-0 [facility] Vital Signs Code Code System Vitals Name Values and Units Timing Information 9279-1 [facility] Respiratory Rate Value=18.0 Units=/m in 10/10/2022 00207-6 INC Pain Level Value=0.0 10/10/2022 8462-4 [facility] Blood Pressure-Diastolic Value=76 Un its=mmHg 10/10/2022 8480-6 LOINC Blood Pressure-Systolic Rvqbn=407 Un its=mmHg 10/10/2022 8310-5 [facility] Body Temperature Value=98.2 Units=?? F 10/10/2022 8867-4 [facility] Heart rate Value=81.0 Units=/min 90665-8 [facility] O2 % BldC Oximetry Value=96.0 Units= % 10/10/2022 85596-2 LOINC Weight Dfecl=250.0 Units=Lbs 8302-2 LOINC Height Value=70.0 Units=Inches 10/07/2022
--- OUTSIDE RECORDS SUMMARY | 2024-10-18 11:56 | XMS_ITS | Clinical Summary ---
Author Organization [facility] ity Address [address] [place] [address] Care Team Providers Care Manufacturing Job Titles Name Role Phone Unavailable Primary Care Provider [...]
== END 2024-10-18 10:37 | disposition home or self-care (01) ==
LOC: HO.HUSH 10:06
PROVIDERS: PCP Nurse Practitioner Family; Visit Provider Urology
DX: C61 Malignant neoplasm of prostate (principal)
CPT/HCPCS: 99214; G2211

== ENCOUNTER → 2024-10-18 10:05 | Outpatient (BNVA) | payer MEDICARE, SELFPAY | PROVIDERS: PCP Nurse Practitioner Family; Visit Provider Urology | DX: C61 Malignant neoplasm of prostate (principal) | CPT/HCPCS: 99212 ==

== ENCOUNTER 2025-02-20 12:52 | Outpatient (AMB) | payer MEDICARE, SELFPAY ==
[2025-02-20 12:55] VITALS: BP 116/86; PULSE 110; RESP 18; TEMP 36.9; O2SAT 98; BMI 19.6
--- NOTE | 2025-02-20 12:55 | A.OFFPC_ITS ---
Vital Signs 02/20/25 12:55 Height 5 ft 9 in Weight 133 lb BMI 19.6 BP 116/86 Blood Pressure Location Lt brachial Position Sitting Respiration 18 Pulse 110 H Pulse Source Pulse Oximeter Temp 98.5 F Temp Source Oral Pulse Oximetry (%) 98 Oxygen Delivery Method Room Air Intake Visit Reasons: Annual PE Intake Note: Pt is here today for PE. Allergies No Known Allergies (No Known Allergies*) Allergy (Verified 02/20/25 12:57) Tobacco use date assessed: 02/20/25 Dental Screening Dental Screen Date: 02/20/25 Did you have a dental visit in the last 12 months?: No Did you have a dental problem in the last 6 months where you did not have access to dental care?: No Was dental information given to patient?: Patient declined HPI Annual PE HPI Details History of Present Illness The patient is a 59-year-old male presenting for a physical examination. He is part of the [place] [employer] and reports feeling great overall. He denies experiencing chest pain, dyspnea, abdominal pain, hematochezia, constipation, diarrhea, or urinary issues. The patient has a history of smoking and is currently part of a low dose CAT scan program due to this history. He continues to smoke but reports efforts to reduce his smoking habit. During the examination, tachycardia was noted, and an EKG was performed to further evaluate this finding. sees urology Health Maintenance - Participation in low dose CAT scan pro gram due to smoking history Social History - Smoking: The patient has a history of smoking and is attempting to reduce his smoking habit. Review of Systems - Cardiovascular: Denies chest pain, dys pnea - Gastrointestinal: Denies abdominal tyo n, hematochezia, constipation, diarrhea - Genitourinary: Denies urinary issues denies any fevers, chills, N/V Physical Exam General: Cooperative, healthy appearing, comfortable, no acute distress and well developed Orientation: Patient oriented x3 Limitations: No limitations Head: Normal to inspection Ears: Hearing grossly normal bilaterally Nose: Normal external nose present Face and sinus: Normal facial exam Eyes: Appearance normal, both eyes and all related structures Neck: Normal visual inspection and Yes full ROM Respiratory: Normal respiratory effort and able to speak in complete sentences. Clear/slightly dim to auscultation bilaterally Cardiovascular: Tachycardic. Normal S1 and S2 GI: Normal to inspection. Soft to palpation and nontender : Testicles without masses/lesions and no hernias appreciated Skin: right abd mildred noted Neuro: Patient oriented x3 Extremities: Normal to inspection Results - EKG performed to evaluate tachycardia Plan The patient was advised to continue participating in the low dose CAT scan program due to his smoking history. Efforts to reduce smoking should be maintained, and further support for smoking cessation may be beneficial. The tachycardia observed during the examination was further evaluated with an EKG, and no follow up needed (seen cardiology in the past) [facility] Medical History Adenocarcinoma of prostate (~2018) Elevated PSA Heart block LAFB (left anterior fascicular block) Carotid bruit Dyslipidemia Nicotine dependence, cigarettes, uncomplicated Hypercalcemia Episodic headache Urinary obstruction Femoral hernia Surgical History History of prostate biopsy History of colonoscopy History of esophagogastroduodenoscopy (EGD) History of right knee surgery History of lower leg fracture Family History Father Alcoholic Smoker Mother HTN (hypertension) Social History (Reviewed 02/20/25 @ 13:22 by MARIO DoranENCOM[facility]) Housing: Apartment Alcohol intake: current Alcohol intake frequency: 3 or more drinks per day Patient Tobacco Use Status: Current everyday Tobacco user Cigarettes Per Day: 3 Years Smoked: onset 20yo, 1-2ppd x38yrs, 50+pyh, quit 02/2024 e-Cigarette/Vaping Use: Never Used Second Hand Smoke Exposure: No service: No Current occupational status: disabled Current occupation: right hand dominant Cognitive needs: No Hearing needs: No Vision needs: Yes Questionnaire PHQ-9 Over the last 2 weeks, how often have you been bothered by any of the following problems? [address]5615 - PHQ-9 Billing: Patient declined-do not bill Source: Developed by Drs. Sravan Hernandez, Carmen Rivers, Eugene Dee and colleagues, with an educational giana from [employer]. Thrive Questionnaire Date Thrive assessed: 02/20/25 What is your living situation today?: I choose not to answer this question Within the past 12 months, did the food you bought not last and you didn't have the money to get more?: I choose not to answer this question Within the past 12 months, did you worry whether your food would run out before you got money to buy more?: I choose not to answer this question Do you have trouble paying for medicines?: I choose not to answer this question Do you have trouble getting transportation to medical appointments?: I choose not to answer this question Do you have trouble paying your heating and electricity bill?: I choose not to answer this question Do you have trouble taking care of your child, family member or friend?: I choose not to answer this question Do you have trouble with day-to-day activities such as bathing, preparing meals, shopping, managing finances, etc.?: I choose not to answer this question Are you currently unemployed and looking for a job?: I choose not to answer this question Are you interested in more education?: I choose not to answer this question THRIVE Score: 0 AUDIT C Alcohol Use Questionnaire (AUDIT-C) 1. How often do you have a drink containing alcohol?: Monthly or less 2. How many drinks containing alcohol do you have on a typical day when you are drinking?: 1 or 2 3. How often do you have six or more drinks on one occasion?: Never Total Score: 1 YAIR-7 AMB Questionnaire YAIR-7 Date YAIR - 7 assessed: 07/15/23 Feeling nervous, anxious, or on edge: 0 = Not at all Not being able to stop or control worryin = Not at all Worrying too much about different things: 0 = Not at all Trouble relaxin = Not at all Being so restless that it is hard to sit still: 0 = Not at all Becoming easily annoyed or irritable: 0 = Not at all Feeling afraid as if something awful might happen: 0 = Not at all Total YAIR-7 score (0-4 normal; 5-9 mild; 10-14 moderate; 15-21 severe): 0 Source: Developed by Drs. Sravan Hernandez, Carmen Rivers, Eugene Dee and colleagues, with an educational giana from [employer] YAIR-7 Assessment Billing YAIR-7 Assessment Tool: YAIR-7 Assessment 07677 Physical exam (Primary Care) Vital Signs: Last Vital Signs Temp 98.5 F 07/28/25 12:55 Pulse 110 H 02/20/25 12:55 Resp 18 02/20/25 12:55 BP 116/86 02/20/25 12:55 Pulse Ox 98 02/20/25 12:55 Oxygen Delivery Method Room Air 02/20/25 12:55 BMI result Body Mass Index 19.6 Tobacco/Smoking Status: Tobacco use Status Tobacco use date assessed 02/20/25 02/20/25 13:01 Patient Tobacco Use Status Current everyday Tobacco 02/20/25 13:01 e-Cigarette/Vaping Use Never Used 02/20/25 13:01 Thrive Assessment: Date of Thrive Assessment Date Thrive assessed 02/20/25 02/20/25 13:01 Coding Level of Care Code Est Pt Prev Care 40-64y(85018) Diagnoses Tachycardia R00.0 LAFB (left anterior fascicular block) I44.4 Nicotine dependence, cigarettes, uncomplicated F17.210 Encounter for routine adult physical exam with abnormal findings Z00.01 Additional Codes YAIR-7 Assessment Billing - YAIR-7 Assessment Tool: YAIR-7 Assessment 22926 ([id number]) Assessment & Plan Assessment & Plan (1) Tachycardia: Code(s): R00.0 - Tachycardia, unspecified Category: Medical (2) LAFB (left anterior fascicular block): Code(s): I44.4 - Left anterior fascicular block Category: Medical (3) Nicotine dependence, cigarettes, uncomplicated: Comment: (onset 20yo, 1-2ppd x38yrs, 50+pyh, quit 02/2024) Code(s): F17.210 - Nicotine dependence, cigarettes, uncomplicated Category: Medical (4) Encounter for routine adult physical exam with abnormal findings: Code(s): Z00.01 - Encounter for general adult medical examination with abnormal findings Category: Medical Plan . Orders: Orders AMB EKG-In Office Today R00.0 - Tachycardia, unspecified
--- OUTSIDE RECORDS SUMMARY | 2025-02-20 13:34 | XMS_ITS ---
Author Name [facility] Organization Unknown Care Team Organization Name Specialty Phone Email Start Date End [facility] te [facility] 06/03/2022 03/14/2024
--- OUTSIDE RECORDS SUMMARY | 2025-02-20 13:34 | XMS_ITS | Clinical Summary ---
Author Organization [facility] ity Address [address] [place] [address] Care Team Providers Care Biologics Specialist Name Role Phone Unavailable Primary Care Provider [...] Panel) 08/25/2023 Colorectal Cancer Screening: Colonoscopy 08/25/2023 HIV Screening 08/25/2023 Hepatitis C Screening 08/25/2023 Medicare Annual Wellness Visit 08/25/2023 Social Influencers of Health Screening 08/25/2023 COVID-19 Vaccine ( - 2023-2 5 season) 2024 Depression Screening 07/27/2024 Influenza Vaccine (#1) 2025 HIB Vaccines Aged Out No longer eligi [...] age to complete this topic Meningococcal B Vaccine Aged Out No l onger eligible based on patient's age to complete this topic RSV Immunization Patients Un royer 20 months Aged Out No longer eligible b ased on patient's age to complete this topic Varicella Vaccines Aged Out No longer eligible based on patient's age to complete this topic
--- OUTSIDE RECORDS SUMMARY | 2025-02-20 13:34 | XMS_ITS | Patient Health Record ---
Author Organization [facility] Address [address] [place] [address] Care Team Providers Care Crm Coordinator Name Role Phone Farzad Bustos M.D. Primary Care Provider Maya sky Aceves Jr Bandar Unavailable Reason For Referral No Information Medications Medication SIG (Take, Route, Frequency, Duration) Notes Start Date End Date Status Omeprazole 20 MG 1 capsule Orally Onc e a day for 30 days Active Colyte with Flavor Packs 240 GM As directed Orally Over the specified time. for 1 day(s) Active Omeprazole 20 MG TAKE [address] [facility] ONCE MANUEL for 30 Active Social History Tobacco Use: Social History Observation Description Date Details (start date - stop date) Current Smoker NA - NA Tobacco Use/Smoking Question Answer Notes Patient is a current smoker How often do you smoke cigarettes? every day How many cigarettes a day do you smoke? 31 or mo re How soon after you wake up do you smoke your fir st cigarette? 6-30 minutes Are you interested in quitting? Not ready to padmini t Alcohol Screen Question Answer Notes Did you have a drink containing alcohol in the p ast year? No Points 0 Interpretation Negative Section Notes: stopped alcholol 08/2016 Problems Problem Type SNOMED Code ICD Code Onset Dates Problem Status W/U Status Risk Notes Problem 42260905 Epigastric pain (R10.13) Active confirmed Problem 62710544 Weight loss (R63.4) Active confirmed Plan Of Treatment Future Test Test Name Order Date UPPER GI ENDOSCOPY 10/14/2017 COLONOSCOPY 10/14/2017 Insurance Providers Payer Name Payer Address Payer Phone Subscriber Number Group Number Insured Name Patient Relationship to Insured Coverage Start Date Coverage End Date [facility] [address] [address] [place], [place] [id number] [phone] [id number] DAVION GERONIMO Self - patient is the insured Medical (General) History Medical History History ICD Code prostate cancer Denies [place],DM,CVA,Lung disease,renal dise ase Surgical History Surgery Date(Month/Year) left leg surgery to repair muscle with p in 1994
== END 2025-02-20 15:04 | disposition home or self-care (01) ==
LOC: HO.HMCC 12:53
PROVIDERS: PCP Nurse Practitioner Family; Visit Provider Nurse Practitioner Family
DX: R00.0 Tachycardia, unspecified (principal); I44.4 Left anterior fascicular block; F17.210 Nicotine dependence, cigarettes, uncomplicated; Z00.01 Encounter for general adult medical examination with abnormal findings

== ENCOUNTER → 2025-02-20 12:52 | Outpatient (BNVA) | payer MEDICARE, SELFPAY | PROVIDERS: PCP Nurse Practitioner Family; Visit Provider Nurse Practitioner Family | DX: Z00.01 Encounter for general adult medical examination with abnormal findings (principal); R00.0 Tachycardia, unspecified; I44.4 Left anterior fascicular block; Z87.891 Personal history of nicotine dependence | CPT/HCPCS: 96127; 99396 ==

== ENCOUNTER 2025-04-25 12:50 | Outpatient (REF) | payer MEDICARE, SELFPAY ==
--- NOTE | ~2025-04-25 | CT_ITS ---
EXAMINATION: CT LUNG SCREENING HISTORY: F17.210 - Nicotine dependence, cigarettes, uncomplicated TECHNIQUE: Low dose axial images were obtained from the sternal notch to upper abdomen without IV contrast per standard departmental protocol. Sagittal and coronal reformatted images were also obtained and reviewed. One or more of the following techniques was used for dose reduction: Automated exposure control, adjustment of the mA and/or kV according to patient size, use of iterative reconstruction technique. DLP: 56 mGy-cm COMPARISON: Comparison is made with the prior examination dated 03/18/2024. FINDINGS: Lung nodules: Again seen are scattered 2-3 mm nodules in the right upper lobe (series 4, images 22 and 25), and in the left upper lobe (series 4, images 32, 46, and 56). No suspicious pulmonary nodules are identified. Emphysema: none Coronary Calcification: mild Aortic Arch Calcification: mild Potentially Significant Incidentals : none Additional Chest Findings: There is no pleural or pericardial effusion. No mediastinal or axillary lymphadenopathy is identified. Visualized upper abdomen: The visualized portions of the liver, spleen, and adrenals have an unremarkable unenhanced appearance. CT/CT lung screening IMPRESSION: No suspicious pulmonary nodules are identified. LUNG-RADS ASSESSMENT: Lung-RADS 2: Benign MANAGEMENT: Continue annual screening with LDCT in 12 months Category S: N/A Electronically signed by: Sravan Preston MD 04/25/2025 02:15 PM EDT
--- OUTSIDE RECORDS SUMMARY | 2025-04-25 13:56 | XMS_ITS | Patient Health Record ---
Author Organization [facility] Address [address] [place] [address] Care Team Providers Care Supervisor Baking Name Role Phone Farzad Bustos M.D. Primary Care Provider Maya sky Aceves Jr Bandar Unavailable [phone] Reason For Referral No Information Medications Medication SIG (Take, Route, Frequency, Duration) Notes Start Date End Date Status Omeprazole 20 MG 1 capsule Orally Onc e a day for 30 days Active Colyte with Flavor Packs 240 GM As directed Orally Over the specified time. for 1 day(s) Active Omeprazole 20 MG TAKE 1 CAPSULE BY MO [facility] ONCE MANUEL for 30 Active Social History [...] Problem Status W/U Status Risk Notes Problem 20882299 Epigastric pain (R10.13) Active confirmed Problem 10430553 Weight loss (R63.4) Active confirmed Plan Of Treatment Future Test Test Name Order Date UPPER GI ENDOSCOPY 10/14/2017 COLONOSCOPY 10/14/2017 Insurance Providers Payer Name Payer Address Payer Phone Subscriber Number Group Number Insured Name Patient Relationship to Insured Coverage Start Date Coverage End Date [facility] [address] [address] [place], [place] [id number] [phone] [id number] DAVION GERONIMO Self - patient is the insured Medical (General) History Medical History History ICD Code prostate cancer Denies [place],DM,CVA,Lung disease,renal dise ase Surgical History Surgery Date(Month/Year) left leg surgery to repair muscle with p in 1994
--- OUTSIDE RECORDS SUMMARY | 2025-04-25 13:56 | XMS_ITS | Clinical Summary ---
Author Organization [facility] it[facility] Address [address] [place] [address] Care Team Providers Care Podiatric Surgeon Name Role Phone Unavailable Primary Care Provider Unavailabl e Social History Tobacco Use Types Packs/Day Years Used Date Smoking Tobacco: Never Assessed Sex and Gender Information Value Date Recorded Sex Assigned at Not on file Legal Sex Male 3:00 PM EST Gender Identity Not on file Sexual Orientation Not on file Plan of Treatment Health Maintenance Due Date Last Done Comments Colorectal Cancer Screening: Colonoscopy 1967 Hepatitis B Vaccines (1 of 3 - 19+ 3-dose series) 1986 Pneumococcal Vaccine: 50+ Ye ars (1 of 1 - PCV) 2017 Zoster Vaccines (1 of 2) 2017 Cholesterol Screening (Lipid Panel) 08/25/2023 HIV Screening 08/25/2023 Hepatitis C Screening 08/25/2023 Medicare Annual Wellness Visit 08/25/2023 Social Influencers of Health Screening 08/25/2023 Depression Screening 07/27/2024 COVID-19 Vaccine ( - 2023-2 5 season) 2025 Influenza Vaccine (#1) 2025 DTaP,Tdap,and Td Vaccines (2 - Td or Tdap) 01/02/2029 01/02/2019 RSV Immunization Adult Patie nts (1 - 1-dose 75+ series) 2042 HIB Vaccines Aged Out No longer eligi [...]
== END 2025-04-25 12:51 | disposition home or self-care (01) ==
LOC: HO.CT 12:50
PROVIDERS: PCP Nurse Practitioner Family; Visit Provider Physician Assistant Medical
DX: Z12.2 Encounter for screening for malignant neoplasm of respiratory organs (principal); F17.210 Nicotine dependence, cigarettes, uncomplicated
CPT/HCPCS: 71271

== ENCOUNTER → 2025-04-25 12:52 | Outpatient (BNV) | payer MEDICARE, SELFPAY | PROVIDERS: PCP Nurse Practitioner Family; Visit Provider Radiology Diagnostic Radiology | DX: F17.210 Nicotine dependence, cigarettes, uncomplicated (principal) | CPT/HCPCS: 71271 ==

== ENCOUNTER 2025-05-16 14:12 | Outpatient (AMB) | payer MEDICARE, SELFPAY ==
[2025-05-16 14:13] VITALS: BP 115/80; PULSE 109; TEMP 36.6; O2SAT 98; BMI 19.2
--- NOTE | 2025-05-16 14:13 | AM.OFFWIN_ITS ---
Intake Vital Signs 05/16/25 14:13 05/16/25 15:05 05/16/25 15:06 05/16/25 15:07 Height 5 ft 9 in Weight 130 lb BMI 19.2 BP 115/80 138/100 H 134/100 H 118/96 H Blood Pressure Location Lt brachial Lt brachial Lt brachial Lt brachial Position Sitting Supine Sitting Standing Pulse 109 H 90 100 99 Pulse Source Pulse Oximeter Pulse Oximeter Pulse Oximeter Pulse Oximeter Temp 97.9 F Temp Source Oral Pulse Oximetry (%) 98 100 99 100 Oxygen Delivery Method Room Air Room Air Room Air Intake Visit Reasons: EP Dizzy (Lulu triaged already) Intake Note: EP feels dizzy since the last Thursday. Last Thursday vomited twice after eating and drinking coffee. He says he had prostate cancer. Patient Tobacco Use Status: Current everyday Tobacco user Allergies No Known Allergies (No Known Allergies*) Allergy (Verified 05/16/25 14:24) Do you need a note to return to daycare/school/sports/work: No HPI HPI Comments History of Present Illness Details The patient is a 59-year-old male with a PMH of prostate ca, tobacco use disorder presenting with dizziness. Dizziness - The patient reports experiencing dizzi ness since April [address] scan - The dizziness was first noted upon sta nding up after the procedure and worsened upon returning home, particularly when standing up from a sitting or lying position. - The dizziness has persisted daily, imp acting his ability to walk. - States dizziness occurs most days - Asymptomatic when lying down. -Reports nausea and vomiting more than 1 week ago, but reports that has since resolved. Believes it was due to his meal rather than the dizziness. - The patient denies headaches, vision c hanges, weakness, chest pain, palpitations, and shortness of breath. - Denies any ear pain, tinnitus, or diff iculty hearing. Review of Systems - Neurological: Reports dizziness; Denie s headaches, vision changes, weakness, focal deficits. - Cardiovascular: Denies chest pain, pal pitations. - Respiratory: Denies shortness of breat h. - Gastrointestinal: Denies current nause a or vomiting - Ear/Nose/Throat: Denies ear pain, otor maura, tinnitis Physical exam General Appearance: Normal appearance, well developed. No acute distress Head: Normocephalic, atraumatic Eyes: Slight exotropia of the left eye noted ENT: Ear canals clear bilaterally. TM without erythema or bulging Cardiovascular: Regular rate and rhythm. No murmurs auscultated. Pulmonary: No respiratory distress. Speaking in full sentences Musculoskeletal: Moving all extremities spontaneously and against gravity Neurological: Palomo Barnhart-pike manauever does not cause nystagmus or worsening symptoms Mental Status: Alert and Oriented x 3 Psychiatric: Normal mood. Normal affect. [facility] Medical History Adenocarcinoma of prostate (~2018) Elevated PSA Heart block LAFB (left anterior fascicular block) Carotid bruit Dyslipidemia Nicotine dependence, cigarettes, uncomplicated Hypercalcemia Episodic headache Urinary obstruction Femoral hernia Surgical History History of prostate biopsy History of colonoscopy History of esophagogastroduodenoscopy (EGD) History of right knee surgery History of lower leg fracture Family History Father Alcoholic Smoker Mother HTN (hypertension) Social History Housing: Apartment Alcohol intake: current Alcohol intake frequency: 3 or more drinks per day Patient Tobacco Use Status: Current everyday Tobacco user Cigarettes Per Day: 3 Years Smoked: onset 20yo, 1-2ppd x38yrs, 50+pyh, quit 02/2024 e-Cigarette/Vaping Use: Never Used Second Hand Smoke Exposure: No service: No Current occupational status: disabled Current occupation: right hand dominant Cognitive needs: No Hearing needs: No Vision needs: Yes Physical Exam Vital Signs: Last Vital Signs Temp 97.9 F 05/16/25 14:13 Pulse 99 05/16/25 15:07 BP 118/96 H 05/16/25 15:07 Pulse Ox 100 05/16/25 15:07 Oxygen Delivery Method Room Air 05/16/25 15:07 BMI result Body Mass Index 19.2 Assessment & Plan Assessment & Plan (1) Dizziness: Code(s): R42 - Dizziness and giddiness Plan Patient presents with dizziness for a few weeks. No associated headaches, ear pain, vision changes, chest pain, palpitations, or shortness of breath. He had a few episodes of vomiting last week, however he believes it was related to the meals he was eating. Nausea and vomiting have since subsided. EKG performed in office shows PACs, new compared to EKG on 02/21/25 upon personal review. Orthostatic vitals reveal a drop in SBP of 20 mmHg from laying to standing, possibly indicating orthostatic hypotension. At this time, advised increased fluid intake and frequent small meals throughout the day. Will also trial meclizine to assess for any improvement in dizziness that may be related to BPPV. Patient has an upcoming appointment with his PCP in early June. Will order blood work including CBC, CMP, TSH, vitamin B12 to evaluate for other underlying causes of dizziness. Advised prompt medical evaluation if increasing dizziness, new onset headaches, vision changes, chest pain, or focal weakness. Orders: Orders AMB EKG-In Office Today R42 - Dizziness and giddiness Complete Blood Count Auto Diff Today R42 - Dizziness and giddiness Comprehensive Met. Panel Today R42 - Dizziness and giddiness TSH reflex Free T4 Today R42 - Dizziness and giddiness Vitamin B12 Today R42 - Dizziness and giddiness Medications: New meclizine 12.5 mg PO TID PRN 10 tabs 0RF dizziness Coding Level of Care Code Est Pt Level 4 (06753) Diagnoses Dizziness R42
[2025-05-16 15:05] VITALS: BP 138/100; PULSE 90; O2SAT 100
[2025-05-16 15:06] VITALS: BP 134/100; PULSE 100; O2SAT 99
[2025-05-16 15:07] VITALS: BP 118/96; PULSE 99; O2SAT 100
--- OUTSIDE RECORDS SUMMARY | 2025-05-16 19:09 | XMS_ITS | Clinical Summary ---
Author Organization [facility] Address [address] [place] [address] Care Team Providers Care Health Outcomes Liaison Name Role Phone Unavailable Primary Care Provider [...]
--- OUTSIDE RECORDS SUMMARY | 2025-05-16 19:10 | XMS_ITS | Patient Health Record ---
Author Organization [facility] Address [address] [place] [address] Care Team Providers Care Pipe Liner Name Role Phone Farzad Bustos M.D. Primary Care Provider Maya sky Aceves Jr Bandar Unavailable Reason For Referral No Information Medications Medication SIG (Take, Route, Frequency, Duration) Notes Start Date End Date Status Omeprazole 20 MG 1 capsule Orally Onc e a day; Duration: 30 days Active Colyte with Flavor Packs 240 GM As directed Orally Over the specified time.; Duration: 1 day(s) Active Omeprazole 20 MG TAKE 1 CAPSULE BY MO [facility] ONCE MANUEL; Duration: 30 Active Social History Tobacco Use: Social [...] Problem Status W/U Status Risk Notes Problem Epigastric pain (12545738) Epigastric pain (R10.13) Active confirmed Problem Weight loss (105843880) Weight loss (R63.4) Active confirmed Plan Of Treatment Future Test Test Name Order Date UPPER GI ENDOSCOPY 10/14/2017 COLONOSCOPY 10/14/2017 Insurance Providers Payer Name Payer Address Payer Phone Subscriber Number Group Number Insured Name Patient Relationship to Insured Coverage Start Date Coverage End Date [facility] [address] [address] [place], [place] [id number] [phone] [id number] DAVION GERONIMO Self - patient is the insured Medical (General) History Medical History History ICD Code prostate cancer Denies [place],DM,CVA,Lung disease,renal dise ase Surgical History Surgery Date(Month/Year) left leg surgery to repair muscle with p in 1994
== END 2025-05-16 15:40 | disposition home or self-care (01) ==
PROVIDERS: PCP Nurse Practitioner Family; Visit Provider Family Medicine
DX: R42 Dizziness and giddiness (principal)

== ENCOUNTER → 2025-05-16 14:12 | Outpatient (BNVA) | payer MEDICARE, SELFPAY | PROVIDERS: PCP Nurse Practitioner Family; Visit Provider Family Medicine | DX: R42 Dizziness and giddiness (principal) | CPT/HCPCS: 99212 ==